=== PATIENT | female | born 1985 | race Hispanic/Latino ===

== ENCOUNTER 2019-06-02 21:39 | Emergency (ER) | payer OTHER ==
[2019-06-02 22:20] LABS: RAPID GROUP A STREP NEGATIVE (NEGATIVE)
== END 2019-06-02 23:16 | disposition home or self-care (01) ==
LOC: EDH 21:39
DX: B34.9 Viral infection, unspecified (principal); Z88.1 Allergy status to other antibiotic agents; Z88.6 Allergy status to analgesic agent
CPT/HCPCS: 71046; 87804; 87880

== ENCOUNTER 2020-08-28 05:12 | Emergency (ER) | payer SELFPAY ==
[2020-08-28 05:43] LABS: BILIRUBIN,URINE Negative (NEGATIVE); COLOR,URINE Yellow (YELLOW); GLUCOSE, URINE (UA) Negative (NEGATIVE); KETONES,URINE 15 mg/dL (NEGATIVE); LEUKOCYTE ESTERASE ,URINE Negative (NEGATIVE); NITRATE,URINE Negative (NEGATIVE); OCCULT BLOOD,URINE Trace (NEGATIVE); PROTEIN,URINE Negative (NEGATIVE)
[2020-08-28 05:47] LABS: APPEARANCE,URINE SLIGHTLY CLOUDY (CLEAR); HCG,QUAL RESULT NEGATIVE (NEGATIVE)
[2020-08-28 05:49] LABS: BACTERIA,URINE Few /HPF (None Seen); MUCUS,URINE Rare LPF (None Seen); RBC,URINE 0-1 /HPF (0-1)
[2020-08-28] MEDS ORDERED: HYDROCODONE/ACETAMINOPHEN 10/325 MG TAB ONE (06:08)
[2020-08-28] MEDS ORDERED: ONDANSETRON ODT 4MG TAB ONE (06:09)
== END 2020-08-28 10:14 | disposition home or self-care (01) ==
LOC: EDH 05:12
DX: M62.9 Disorder of muscle, unspecified (principal); R10.9 Unspecified abdominal pain; R03.0 Elevated blood-pressure reading, without diagnosis of hypertension; Z98.890 Other specified postprocedural states; Z88.1 Allergy status to other antibiotic agents; Z88.6 Allergy status to analgesic agent
CPT/HCPCS: 76705; 81001; 81025